=== PATIENT | female | born 1985 | race American Indian/Alaskan Native ===

== ENCOUNTER 2016-11-05 07:29 | Emergency (ER) | payer OTHER ==
[2016-11-05 08:19] VITALS: BP 127/70
[2016-11-05] MEDS ORDERED: VALIUM PO ONE (10:01)
[2016-11-05] MEDS ORDERED: TORADOL IM ONE (10:01)
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
== END 2016-11-05 11:02 | disposition home or self-care (01) ==
LOC: ED 07:29
DX: S39.012A Strain of muscle, fascia and tendon of lower back, initial encounter (principal); S16.1XXA Strain of muscle, fascia and tendon at neck level, initial encounter; V89.2XXA Person injured in unspecified motor-vehicle accident, traffic, initial encounter; Y93.89 Activity, other specified; Y99.8 Other external cause status; Y92.89 Other specified places as the place of occurrence of the external cause
CPT/HCPCS: 96372; 99283; J1885

== ENCOUNTER 2017-05-29 10:08 | Outpatient (CLI) | payer MEDICAID | END 2017-05-29 13:00 | disposition home or self-care (01) | LOC: LAB 10:08 → TRG 12:36 → LAB 13:00 | PROVIDERS: ATTEND Obstetrics & Gynecology | DX: O36.0130 Maternal care for anti-D [Rh] antibodies, third trimester, not applicable or unspecified (principal); Z3A.32 32 weeks gestation of pregnancy | CPT/HCPCS: 86850; 86900; 86901; 96372; J2790 ==